=== PATIENT | female | born 1940 | race Caucasian/White ===

== ENCOUNTER → 2024-08-24 15:58 | Outpatient (CLI) | payer MEDICARE, OTHER, SELFPAY ==
[2024-08-24 16:59] LABS: Add Manual Diff / Slide Review NO; Basophils Absolute Auto 0 /uL (0-100); Basophils Percent Auto 0.8 % (0-2); Eosinophils Absolute Auto 100 /uL (0-450); Eosinophils Percent Auto 2.5 % (2-4); Hematocrit 42.8 % (36-46); Hemoglobin 14.1 g/dL (12.0-16.0); Lymphocytes Absolute Auto 1000 /uL (1100-4500); Lymphocytes Percent Auto 17.5 % (25-40); Mean Corpuscular HGB Conc 32.9 % (30-36); Mean Corpuscular Hemoglobin 29.9 PG (26-34); Mean Corpuscular Volume 90.7 fL (80-100); Monocytes Absolute Auto 600 /uL (0-900); Monocytes Percent Auto 10.1 % (3-14); Neutrophils Absolute Auto 3900 /uL (1500-7000); Neutrophils Percent Auto 69.1 % (50-75); Platelet Count 269 X10^3/uL (150-400); Red Blood Cell Count 4.72 X10^6/uL (4.0-5.2); White Blood Cell Count 5.6 X10^3/uL (4.5-11.0)
[2024-08-24 17:19] LABS: Alanine Aminotransferase 16 IU/L (<35); Albumin 4.3 g/dL (3.5-5.0); Albumin Globulin Ratio 1.3 (1.0-2.8); Alkaline Phosphatase 71 U/L (38-126); Aspartate Aminotransferase 31 IU/L (14-36); BUN Creatinine Ratio 22.2 (6-22); Bilirubin Total 0.5 mg/dL (0.2-1.3); Blood Urea Nitrogen 14 mg/dL (7-17); Calcium 9.2 mg/dL (8.4-10.2); Carbon Dioxide 28 mmol/L (22-32); Chloride 105 mmol/L (98-107); Estimated Glomerular Filt Rate > 60 mL/min (>60); Globulin 3.4 g/dL (1.7-4.1); Glucose 89 mg/dL (70-99); HEMOLYSIS < 15 (0-50); Sodium 139 mmol/L (137-145); Total Protein 7.7 g/dL (6.3-8.2)
[2024-08-24 17:36] LABS: Free T3, Triiodothyronine Free 4.03 pg/mL (2.77-5.27); Vitamin D 25 Hydroxy (D3) 62.6 ng/mL (30.0-100.0)
[2024-08-24 17:50] LABS: TSH w/ Reflex to FT4 0.67 uIU/mL (0.47-4.68)
[2024-08-24 17:54] LABS: Ferritin 57 ng/mL (11-264)
[2024-08-25 22:10] LABS: Thyroid Peroxidase Antibodies 225 IU/mL (0-34)
[2024-08-26 17:36] LABS: Anti Thyroglobulin Antibody <1.0 IU/mL (0.0-0.9)
== END ==
PROVIDERS: PCP Family Medicine; Referring Provider Family Medicine; Visit Provider Family Medicine
DX: E55.9 Vitamin D deficiency, unspecified (principal); R53.82 Chronic fatigue, unspecified; Z63.6 Dependent relative needing care at home
CPT/HCPCS: 80053; 82306; 82728; 84443; 84481; 84482; 85025; 86376; 86800

== ENCOUNTER → 2025-02-08 12:00 | Outpatient (CLI) | payer MEDICARE, OTHER, SELFPAY ==
[2025-02-08 13:54] LABS: Alanine Aminotransferase 14 IU/L (<35); Albumin 4.3 g/dL (3.5-5.0); Albumin Globulin Ratio 1.5 (1.0-2.8); Alkaline Phosphatase 64 U/L (38-126); Blood Urea Nitrogen 13 mg/dL (7-17); Calcium 9.2 mg/dL (8.4-10.2); Carbon Dioxide 28 mmol/L (22-32); Chloride 105 mmol/L (98-107); Estimated Glomerular Filt Rate > 60 mL/min (>60); Globulin 2.9 g/dL (1.7-4.1); Glucose 85 mg/dL (70-99); HEMOLYSIS < 15 (0-50); Potassium 4.5 mmol/L (3.4-5.1); Sodium 140 mmol/L (137-145); Total Protein 7.2 g/dL (6.3-8.2)
[2025-02-08 14:25] LABS: TSH w/ Reflex to FT4 0.80 uIU/mL (0.47-4.68)
[2025-02-08 14:28] LABS: Ferritin 77 ng/mL (11-264)
[2025-02-09 16:41] LABS: Anti Thyroglobulin Antibody <1.0 IU/mL (0.0-0.9)
== END ==
PROVIDERS: PCP Family Medicine; Referring Provider Family Medicine; Visit Provider Family Medicine
DX: R79.89 Other specified abnormal findings of blood chemistry (principal); E06.3 Autoimmune thyroiditis; E03.9 Hypothyroidism, unspecified; R53.82 Chronic fatigue, unspecified; E61.1 Iron deficiency
CPT/HCPCS: 36415; 80053; 82728; 84402; 84403; 84443; 84482; 86376; 86800